=== PATIENT | male | born 1955 | race Caucasian/White ===

== ENCOUNTER 2017-03-14 07:44 | Emergency (ER) | payer OTHER ==
[~2017-03-14] VITALS: Ht 175.3 cm; Wt 118.1 kg
[~2017-03-14 07:44] MED LIST: ADVAIR 500/501 DISK IH; ALPRAZOLAM0.5 MG PO; AMITIZA24 MICROGR PO; ASPIRIN81 M2 PO; BENTYL20 MG PO; BYSTOLIC5 MG PO; COUMADIN5 MG PO; COUMADIN7.5 MG PO; ENDOCET 5-3251 EACH PO; GEMFIBROZIL600 MG PO; GLIMEPIRIDE4 MG PO; GLUCOPHAGE1000 MG PO; KLOR-CON M2020 MEQ PO; LINZESS145 MCG PO; LISINOPRIL10 MG PO; LISINOPRIL20 MG PO; LITE COAT ASPI325 M1 PO; LO-DOSE ASPIRIN81 M1 PO; LOPID600 MG PO; LOVENOX100 MG/1 M SC; METFORMIN HCL500 MG PO; NICOTINE PATCH1 EAC2 TD; OMEPRAZOLE40 M1 PO; ONDANSETRON HCL4 MG PO; PRAVACHOL40 MG PO; PRINIVIL10 MG PO; REGLAN5 MG PO; SENNA-TIME S T1 EACH PO; SIMVASTATIN40 MG PO; SPIRIVA1 INHALATI IH; WARFARIN SODIU7.5 MG PO; WARFARIN SODIUM5 MG PO; ZOFRAN4 MG PO
[2017-03-14] MEDS ORDERED: SPIRIVA1 INHALATI IH (10:10)
[2017-03-14 10:43] VITALS: BP 111/45
== END 2017-03-14 10:43 | disposition home or self-care (01) ==
LOC: EME 07:44
DX: J44.9 Chronic obstructive pulmonary disease, unspecified (principal); Z76.0 Encounter for issue of repeat prescription; F17.200 Nicotine dependence, unspecified, uncomplicated; E11.9 Type 2 diabetes mellitus without complications; I10 Essential (primary) hypertension; E78.5 Hyperlipidemia, unspecified; Z88.0 Allergy status to penicillin; Z88.1 Allergy status to other antibiotic agents
CPT/HCPCS: 99281; 99282